=== PATIENT | male | born 1955 | race Caucasian/White ===

== ENCOUNTER 2017-08-16 09:16 | Outpatient (CLI) ==
--- NOTE | 2017-08-16 10:24 | US ---
EXAM: Thyroid ultrasound HISTORY: Abnormal thyroid function. COMPARISON: None TECHNIQUE: Sonographic evaluation of the thyroid was performed with limited doppler. FINDINGS: The right thyroid measures 4.1 x 1.4 x 1.5 cm. There is a hypoechoic nodule measuring 0.7 x 0.5 x 0.4 cm. There is an additional hypoechoic complex nodule measuring 0.6 x 0.4 x 0.4 cm with n o internal color Doppler flow. The echogenicity and color Doppler flow is otherwise unremarkable. The isthmus measures 0.5 cm in thickness. The left thyroid measures 4.1 x 1.2 x 1.9 cm. There is normal echogenicity and color Doppler flow. This there are multiple hypoechoic cysts. There is a hypoechoic nodule measuring 0.6 cm in diameter with no internal color Doppler flow. IMPRESSION: Bilateral thyroid cystic lesions and nodules. None of which measure 1 cm or above. Follow-up ultra sound in 6 months to 1 year is recommended.
== END 2017-08-16 09:17 | disposition home or self-care (01) ==
LOC: RAD 09:16
PROVIDERS: ATTEND Family Medicine
DX: R94.6 Abnormal results of thyroid function studies (principal)

== ENCOUNTER 2017-09-15 07:56 | Outpatient (CLI) ==
--- NOTE | 2017-09-15 13:17 | NM ---
EXAM: Thyroid uptake and scan HISTORY: Thyroid cyst COMPARISON: Thyroid ultrasound on 08/16/2017 showed bilateral thyroid cystic lesions and nodules. TECHNIQUE: Following the oral administration of 263 microcurie of radioiodine 123, thyroid uptake martin ue was calculated at 4 hours interval, followed by a thyroid scan. FINDINGS: Thyroid uptake value is 8.6%. This is normal. Thyroid scan demonstrates both lobes to be of normal size shape. Isotope distribution is heterogeneous in both thyroid lobes. IMPRESSION: 1. Thyroid uptake value is normal. 2. Thyroid gland size is normal. 3. Heterogeneous isotope distribution throughout the gland.
== END 2017-09-15 07:57 | disposition home or self-care (01) ==
LOC: RAD 07:56
PROVIDERS: ATTEND Family Medicine
DX: E04.1 Nontoxic single thyroid nodule (principal)

== ENCOUNTER 2018-05-31 12:32 | Outpatient (CLI) ==
--- NOTE | 2018-05-31 13:16 | US ---
EXAM: Thyroid ultrasound History: Follow-up thyroid nodules. Comparison: Thyroid ultrasound 09/15 2017 Technique: Multiple sonographic images through the thyroid gland were obtained. Color duplex Dopple r was used to interrogate vascular flow. Findings: The right lobe of the thyroid measures 4.4 cm x 1.4 cm x 1.8 cm and again demonstrates multiple nodul es with the largest measuring 0.6 cm not significantly changed. The thyroid isthmus measures 0.5 cm in thickness. The left lobe of the thyroid measures 3.9 cm x 1.1 cm x 2.0 cm and again demonstrates multiple nodule s with the largest measuring 0.6 cm not significantly changed. No extrathyroidal masses are identified. The thyroid gland is not hypervascular. Impression: No significant interval change in the sub-centimeter bilateral thyroid nodules.
== END 2018-05-31 12:33 | disposition home or self-care (01) ==
LOC: RAD 12:32
PROVIDERS: ATTEND Family Medicine
DX: E04.1 Nontoxic single thyroid nodule (principal)

== ENCOUNTER 2018-09-08 13:05 | Outpatient (CLI) ==
--- NOTE | 2018-09-09 14:36 | HOLTER ---
PATIENT INFORMATION AND COMMENTS Attending Physician: DR. JANELL SHARIF Indications: PALPITATIONS __ Patient Medications: SYNTHROID, ZESTRIL __ Pre-procedure Summary: Protocol: Standard Heart Rate Started: 09/08/181318 Minimum: 48 BPM Weight: 200 LBS Ended: 09/09/187 Maximum: 126 BPM Height: 67" Duration: 24 HRS Average: 80 BPM _ INTERPRETATIONS/OBSERVATIONS: 1. BASIC RHYTHM: SINUS, RATE 50 BPM TO 130 BPM, AVERAGE 80 BPM 2. INFREQUENT, ISOLATED PVC'S, RARE PAC'S 3. NO ST-T WAVE CHANGES FROM BASELINE 4. ACTIVITY LOG --NO CORRELATION MTDD
== END 2018-09-08 13:06 | disposition home or self-care (01) ==
LOC: CAR 13:05
PROVIDERS: ATTEND Family Medicine
DX: R00.2 Palpitations (principal)
CPT/HCPCS: 93227